=== PATIENT | female | born 2000 | race African-American/Black ===

== ENCOUNTER 2023-08-04 18:32 | Emergency (ER) | payer OTHER ==
[~2023-08-04] VITALS: Ht 162.6 cm; Wt 91.0 kg
[2023-08-04 18:34] VITALS: O2SAT 99
[2023-08-04] MEDS ORDERED: CYCLOBENZAPRINE 10MG TABLET PO ONE (19:45)
[2023-08-04] MEDS: CYCLOBENZAPRINE 10MG TABLET PO NR (20:06)
[2023-08-04] MEDS ORDERED: IBUP-2029 MT (22:13)
[2023-08-04 22:30] VITALS: BP 131/71; PULSE 74; RESP 16; TEMP 98.6
== END 2023-08-04 22:57 | disposition home or self-care (01) ==
LOC: ER 18:32
DX: S80.01XA Contusion of right knee, initial encounter (principal); W18.39XA Other fall on same level, initial encounter; Y93.89 Activity, other specified; Y92.89 Other specified places as the place of occurrence of the external cause; Y99.8 Other external cause status
CPT/HCPCS: 73562; 93971; 99284